=== PATIENT | male | born 1965 | race African-American/Black ===

== ENCOUNTER 2017-09-20 02:40 | Emergency (ER) | payer SELFPAY ==
[2017-09-20 02:48] VITALS: TEMP 98.9; BMI 27.6
[2017-09-20] MEDS ORDERED: POLYETHYLENE GLYCOL 3350 119 GM BTL PO ONE (03:12)
--- NOTE | 2017-09-20 03:12 | PDOC ---
History of Present Illness - General Chief Complaint: Constipation Stated Complaint: UNABLE TO MOVE BOWEL X 1 WEEK History Source: Patient Exam Limitations: No Limitations - History of Present Illness Initial Comments: 09/20/17 04:51 Pt states that he has a hx of chronic constipation; today however he has beeen constipated x 1 week despite citroma and mineral oil enema. He is on HCTZ and states that he doesn't drink enough water. States that his abd is not painful, but it is noticeably more distended than usual. Pt has a hx of CVA in the past. Pt has no residual weaknesses. Pt had a PMD, but PMD a year ago; pt has not seen an MD in two years. He is worried about the left arm numbness/tingly sensation. Timing/Duration: 1 week Severity: moderate Past History - Past Medical History Allergies/Adverse Reactions: Allergies Allergy/AdvReac Type Severity Reaction Status Date / Time cat dander Allergy Verified 09/20/17 02:46 dog dander Allergy Verified 09/20/17 02:46 shellfish derived Allergy Verified 09/20/17 02:46 Home Medications: Ambulatory Orders Amlodipine Besylate 10 mg PO DAILY 01/12/16 Carvedilol [Coreg] 6.25 mg PO BID 01/12/16 Valsartan/Hydrochlorothiazide [Valsartan-Hctz 160-25 mg Tab] 1 each PO DAILY HTN: Yes Hypercholesterolemia: Yes - Suicide/Smoking/Psychosocial Hx Smoking History: Never smoked Have you smoked in the past 12 months: No Hx Alcohol Use: No Drug/Substance Use Hx: No Substance Use Type: None Review of Systems - Review of Systems Constitutional: No: Symptoms Reported, See HPI, Chills, Diaphoresis, Fever, Loss of Appetite, Malaise, Night Sweats, Weakness, Weight Stable, Unintentional Wgt. Loss, Unexplained wgt Loss, Other HEENTM: No: Symptoms Reported, See HPI, Eye Pain, Blurred Vision, Tearing, Recent change in vision, Double Vision, Cataracts, Ear Pain, Ocular Prothesis, Ear Discharge, Nose Pain, Nose Congestion, Tinnitus, Nose Bleeding, Hearing Loss , Throat Pain, Throat Swelling, Mouth Pain, Dental Problems, Difficulty Swallowing, Mouth Swelling, Other Respiratory: No: Symptoms reported, See HPI, Cough, Orthopnea, Shortness of Breath, SOB with Exertion, SOB at Rest, Stridor, Wheezing, Productive cough, Hemoptysis, Other Cardiac (ROS): No: Symptoms Reported, See HPI, Chest Pain, Edema, Irregular Heart Rate, Lightheadedness, Palpitations, Syncope, Chest Tightness, Other ABD/GI: Yes: Constipated, Other (distended abdomen). No: Symptoms Reported, See HPI, Abdominal Distended, Abd. Pain w/ defecation, Blood Streaked Bowels, Diarrhea, Difficulty Swallowing, Nausea, Poor Appetite, Poor Fluid Intake, Rectal Bleeding, Vomiting, Indigestion, Abdominal cramping, Tarry Stools : No: Symptoms Reported, See HPI, Burning, Dysuria, Discharge, Frequency, Flank Pain, Hematuria, Incontinence, Pain, Urgency, Testicular Mass, Testicular Swelling, Lesions, Testicular Pain, Other Musculoskeletal: No: Symptoms Reported, See HPI, Back Pain, Gout, Joint Pain, Joint Swelling, Muscle Pain, Muscle Weakness, Neck Pain, Joint Stiffness, Other Integumentary: No: Symptoms Reported, See HPI, Bruising, Change in Color, Change in Hair/Nails, Dryness, Erythema, Flushing, Lesions, Lumps, Pallor, Pruritus, Rash, Sweating, Other Neurological: No: Symptoms reported, See HPI, Headache, Numbness, Paresthesia, Pre-Existing Deficit, Seizure, Tingling, Tremors, Weakness, Unsteady Gait, Ataxia, Dizziness, Other *Physical Exam - Vital Signs Last Vital Signs Temp Pulse Resp BP Pulse Ox 98.9 F 98 H 18 158/108 99 09/20/17 02:42 09/20/17 02:42 09/20/17 02:42 09/20/17 02:42 09/20/17 02:42 - Physical Exam General Appearance: Yes: Nourished, Appropriately Dressed HEENT: positive: EOMI, CODY, Normal ENT Inspection, Normal Voice, Pharynx Normal Neck: positive: Trachea midline, Normal Thyroid Respiratory/Chest: positive: Lungs Clear, Normal Breath Sounds Cardiovascular: positive: Regular Rhythm, Regular Rate, S1, S2 Gastrointestinal/Abdominal: positive: Normal Bowel Sounds, Flat Musculoskeletal: positive: Normal Inspection Extremity: positive: Normal Capillary Refill Integumentary: positive: Normal Color, Dry, Warm Neurologic: positive: dog obedience instructor II-XII NML intact, Fully Oriented, Alert ED Treatment Course - LABORATORY CBC & Chemistry Diagram: 09/20/17 04:25 09/20/17 04:25 - RADIOLOGY Radiology Studies Ordered: 09/20/17 04:55 FUA: Pt has multiple air fluid levels; he needs a CT scan to r/o obstruction/ ileus. Medical Decision Making - Medical Decision Making 09/20/17 04:49 Pt comes with abdominal distension and constipation. States for 7 days he has not moved bowels. Today with mineral oil enema he was able to leak out some stool. He states that his belly keeps getting bigger. Even when he eats, belly gets bigger. Pt also has left arm tingling x few days. He has a hx of CVA and HTN. He has no other complaints. Pt is afebrile and no N/V/D 09/20/17 07:01 Pt's flat and upright of his abd shows multiple air fluid levels. Pt was able to move his bowels however his abd is still distended. Pt will be sent for a CT abd pelvis at 7:30am. 09/20/17 07:09 Pt will be signed out to AM attending. *DC/Admit/Observation/Transfer Diagnosis at time of Disposition: Ileus - Discharge Dispostion Disposition: HOME Condition at time of disposition: Stable - Referrals Referrals: Nii Enamorado MD [Staff Physician] - Doron Regan MD [Staff Physician] - - Patient Instructions Printed Discharge Instructions: DI for Ileus Additional Instructions: Please call Dr. Regan's office tomorrow for a follow up primary care doctor appointment within 1-3 days. Also, call Dr. Cintron for a follow up appointment with cardiology within 1 week. As discussed in the emergency department, you are due for a colonoscopy to evaluate for cancer. Please arrange a colonoscopy with a primary care doctor in the next few months. Return to the emergency department if you have new, worsening or concerning symptoms.
[2017-09-20] MEDS ORDERED: LACTULOSE 20 GM/30 ML UDC (FOR ORAL USE ONLY) ONE (03:44)
[2017-09-20] MEDS ORDERED: SODIUM PHOSPHATE/NA BIPHOS 133 ML ENEMA PR ONE (03:52)
[2017-09-20] MEDS ORDERED: LACTULOSE 20 GM/30 ML UDC (FOR ORAL USE ONLY) PO ONE (03:52)
[2017-09-20 05:04] LABS: BASOPHIL 0.4 % (0-2.0); EOSINOPHIL 0.8 % (0-4.5); MCH 26.5 pg (25.7-33.7); MCHC 32.7 g/dl (32.0-35.9); MEAN PLT VOLUME 8.4 fl (7.5-11.1); NEUTROPHILS 77.2 % (42.8-82.8); PLATELET COUNT 263 K/MM3 (134-434); RDW 15.8 % (11.9-15.9); WHITE BLOOD COUNT 11.5 K/mm3 (4.0-10.0)
[2017-09-20 05:16] LABS: INR 1.17 (0.82-1.09); PROTHROMBIN TIME (PATIENT) 13.2 SEC (9.98-11.88)
[2017-09-20 05:44] LABS: ALBUMIN 4.3 g/dl (3.4-5.0); ANION GAP 9 (8-16); BILIRUBIN,TOTAL 0.5 mg/dL (0.2-1.0); CALCIUM 8.7 mg/dL (8.5-10.1); CO2 29 mmol/L (21-32); CREATININE 1.2 mg/dL (0.7-1.3); GLUCOSE,RANDOM 134 mg/dL (74-106); SGOT/AST 29 U/L (15-37); SGPT/ALT 80 U/L (12-78); TOT PROT 7.6 g/dl (6.4-8.2)
[2017-09-20 05:48] LABS: ALK PHOS 78 U/L (45-117); CPK 358 IU/L (39-308); TROPONIN I < 0.02 ng/ml (0.00-0.05)
--- NOTE | 2017-09-20 08:24 | PDOC ---
*Physical Exam - Vital Signs Last Vital Signs Temp Pulse Resp BP Pulse Ox 98.9 F 98 H 18 158/108 99 09/20/17 02:42 09/20/17 02:42 09/20/17 02:42 09/20/17 02:42 09/20/17 02:42 Heart Score/ECG Review - History History: Slightly suspicious - Electrocardiogram EKG: Non specific repolarization disturbance - Age Age: 45-65 - Risk Factors Risk Factors Heart Score: Yes Hx Hypertension Based on the list above the patient has:: 1-2 risk factors - Troponin Troponin: </= normal limit - Score Heart Score - Total: 3 ED Treatment Course - LABORATORY CBC & Chemistry Diagram: 09/20/17 04:25 09/20/17 04:25 - ADDITIONAL ORDERS Additional order review: Laboratory Results 09/20/17 09/20/17 04:25 04:25 PT with INR 13.20 H INR 1.17 H Sodium 140 Potassium 3.6 Chloride 102 Carbon Dioxide 29 Anion Gap 9 BUN 20 H Creatinine 1.2 Creat Clearance w eGFR > 60 Random Glucose 134 H Calcium 8.7 Total Bilirubin 0.5 AST 29 ALT 80 H Alkaline Phosphatase 78 Creatine Kinase 358 H Creatine Kinase Index 0.2 CK-MB (CK-2) < 1.0 Troponin I < 0.02 Total Protein 7.6 Albumin 4.3 09/20/17 04:25 RBC 5.34 MCV 81.0 MCHC 32.7 RDW 15.8 MPV 8.4 Neutrophils % 77.2 Lymphocytes % 12.5 Monocytes % 9.1 Eosinophils % 0.8 Basophils % 0.4 - Medications Given in the ED: ED Medications Discontinued Medications Generic Name Dose Route Start Last Admin Trade Name Freq PRN Reason Stop Dose Admin Lactulose 20 gm 09/20/17 03:52 09/20/17 04:04 Cephulac (Oral Use) PO 09/20/17 03:53 20 gm ONCE ONE Administration Polyethylene Glycol 17 gm 09/20/17 03:12 09/20/17 04:33 Miralax (For Daily Use) - PO 09/20/17 03:13 Not Given ONCE ONE Sodium Phosphate 133 ml 09/20/17 03:52 09/20/17 04:33 Fleet Adult Rectal Enema - VT 09/20/17 03:53 133 ml ONCE ONE Administration Medical Decision Making - Medical Decision Making 09/20/17 08:36 Patient signed out to me by overnight attending pending CT scan of the abdomen/ pelvis as well as repeat troponin. In summary, patient presented to the emergency department complaining of abdominal distention and had an abdominal x- ray that showed air-fluid levels. While awaiting CT scan the patient received multiple medications for constipation and had multiple bowel movements some liquid, and also some solid stool per the patient. In addition the patient was complaining of 3 days of left arm tingling and pain for which a troponin was sent that was negative and EKG was performed which showed multiple T-wave inversions but no ST changes. On my evaluation, this morning the patient reports he feels much better, and that his abdominal distention has improved since he had multiple bowel movements. Repeat abd exam with mild distention, but no tenderness, rebound or guardin. In addition, the patient reports no left arm tingling or pain and denies any chest pain or shortness of breath. The patient's heart score is 3. CT scan was completed which reveals an ileus but no obstruction and possible mesenteric adenitis. Results were discussed with patient. Currently the patient will PO challenge while we await his repeat troponin. In addition, the patient was noted to be hypertensive to 150/110 on repeat vitals this morning. He reports he did not take any of his home dose medications this morning including carvedilol, amlodipine, valsartan, and hydrochlorothiazide. I ordered those medications for the patient and will repeat his blood pressure. 09/20/17 09:27 Repeat blood pressure status post home dose of blood pressure medication is 140/ 91. Repeat troponin is negative. Rpt EKG stable. Patient ate breakfast and currently reports feeling much better than when he came in. He requests discharge. I discussed the physical exam findings, ancillary test results and final diagnoses with the patient. I answered all of the patient's questions. The patient was satisfied with the care received and felt comfortable with the discharge plan and treatment plan. The patient will call their primary care physician within 24 hours to arrange follow-up and will return to the Emergency Department with any new, persistent or worsening symptoms. *DC/Admit/Observation/Transfer Diagnosis at time of Disposition: Ileus - Discharge Dispostion Disposition: HOME Condition at time of disposition: Stable Admit: No - Referrals Referrals: Nii Enamorado MD [Staff Physician] - Outon,Doron, MD [Staff Physician] - - Patient Instructions Printed Discharge Instructions: DI for Ileus Additional Instructions: Please call Dr. Regan's office tomorrow for a follow up primary care doctor appointment within 1-3 days. Also, call Dr. Enamorado'quinn for a follow up appointment with cardiology within 1 week. As discussed in the emergency department, you are due for a colonoscopy to evaluate for cancer. Please arrange a colonoscopy with a primary care doctor in the next few months. Return to the emergency department if you have new, worsening or concerning symptoms. - Transfer to Acute Care Facility Transfer comment: 09/20/17 09:29 I, Dr. Shiva Mcmillan MD, attest that this document has been prepared under my direction and personally reviewed by me in its entirety. I further attest, that it accurately reflects all work, treatment, procedures and medical decision -making performed by me.
[2017-09-20 08:27] VITALS: PULSE 81
[2017-09-20] MEDS ORDERED: HYDROCHLOROTHIAZIDE 25 MG TABLET (FP) PO ONE (08:34)
[2017-09-20] MEDS ORDERED: CARVEDILOL 6.25 MG TABLET (FP) PO ONE (08:34)
[2017-09-20] MEDS ORDERED: VALSARTAN 160 MG TABLET (UD) PO ONE (08:34)
[2017-09-20] MEDS ORDERED: amLODIPine BESYLATE 10 MG TABLET (FP) PO ONE (08:34)
[2017-09-20] MEDS ORDERED: HYDROCHLOROTHIAZIDE 25 MG TABLET (FP) ONE (08:39)
[2017-09-20] MEDS ORDERED: amLODIPine BESYLATE 5 MG TABLET (FP) ONE (08:39)
[2017-09-20 09:27] VITALS: BP 144/91
--- NOTE | 2017-09-22 18:27 | EKG ---
Test Reason : Blood Pressure : / mmHG Vent. Rate : 094 BPM Atrial Rate : 094 BPM P-R Int : 186 ms QRS Dur : 088 ms QT Int : 350 ms P-R-T Axes : 038 030 -42 degrees QTc Int : 437 ms POOR DATA QUALITY, INTERPRETATION MAY BE ADVERSELY AFFECTED NORMAL SINUS RHYTHM T WAVE ABNORMALITY, CONSIDER INFEROLATERAL ISCHEMIA ABNORMAL ECG NO PREVIOUS ECGS AVAILABLE REPEAT EKG IF CLINICALLY INDICATED Confirmed by KIA OH MD ([id number]) on 09/22/2017 6:26:56 PM Referred By: MD DOSHI Confirmed By:KIA OH MD
== END 2017-09-20 09:43 | disposition home or self-care (01) ==
LOC: FER 02:40
DX: K56.7 Ileus, unspecified (principal); Z86.73 Personal history of transient ischemic attack (TIA), and cerebral infarction without residual deficits
CPT/HCPCS: 36415; 74020-TC; 74176-TC; 80053; 82550; 82553; 84484; 85025; 85610; 93005; 99283-25

== ENCOUNTER 2017-12-31 13:49 | Emergency (ER) | payer OTHER ==
--- NOTE | 2017-12-31 13:53 | PDOC ---
History of Present Illness <Sil Heard - Last Filed: 12/31/17 14:39> - General History Source: Patient Exam Limitations: No Limitations - History of Present Illness Initial Comments: 12/31/17 14:15 52 y/o male with let arm tingling on/off for several weeks, gets this way when blood pressure is elevated. having a hard time controlling blood pressure. Hx of stroke in 2015. Had some left leg tingling as well. No weakness, chest pain or back pain. Denies SOB, fall or trauma. takes a baby ASA daily. Did not take one today. Pt has not followed up with or was never seen by a Neurologist. <Isaías Knapp - Last Filed: 12/31/17 15:35> - General Chief Complaint: CVA/TIA Stated Complaint: TINGLING,NUMBNESS TO LEFT ARM Time Seen by Provider: 12/31/17 13:52 Past History <Sil Heard - Last Filed: 12/31/17 14:39> - Past Medical History HTN: Yes Hypercholesterolemia: Yes - Suicide/Smoking/Psychosocial Hx Smoking History: Never smoked Have you smoked in the past 12 months: No Hx Alcohol Use: No Drug/Substance Use Hx: No Substance Use Type: None <Isaías Knapp - Last Filed: 12/31/17 15:35> - Past Medical History Allergies/Adverse Reactions: Allergies Allergy/AdvReac Type Severity Reaction Status Date / Time cat dander Allergy Verified 12/31/17 13:50 dog dander Allergy Verified 12/31/17 13:50 shellfish derived Allergy Verified 12/31/17 13:50 Home Medications: Ambulatory Orders Amlodipine Besylate 10 mg PO DAILY 01/12/16 Carvedilol [Coreg] 6.25 mg PO BID 01/12/16 Valsartan/Hydrochlorothiazide [Valsartan-Hctz 160-25 mg Tab] 1 each PO DAILY Aspirin 81 mg PO DAILY 12/31/17 Review of Systems - Review of Systems Able to Perform ROS?: Yes Is the patient limited Congolese proficient: No Constitutional: No: Chills, Fever HEENTM: No: Eye Pain, Blurred Vision Respiratory: No: Cough, Shortness of Breath Cardiac (ROS): No: Chest Pain ABD/GI: No: Diarrhea, Nausea, Vomiting : No: Dysuria Integumentary: No: Bruising Neurological: Yes: Numbness, Paresthesia. No: Headache, Dizziness All Other Systems: Reviewed and Negative <AriaIsaías - Last Filed: 12/31/17 15:35> *Physical Exam - Vital Signs Last Vital Signs Temp Pulse Resp BP Pulse Ox 98 F 71 18 168/106 98 12/31/17 13:49 12/31/17 13:49 12/31/17 13:49 12/31/17 13:49 12/31/17 13:49 <Heard,Giomilsy - Last Filed: 12/31/17 14:39> - Physical Exam General Appearance: Yes: Nourished, Appropriately Dressed. No: Apparent Distress HEENT: positive: EOMI, CODY, Normal ENT Inspection, Normal Voice, Symmetrical, Pharynx Normal Neck: positive: Trachea midline, Normal Thyroid, Supple. negative: Tender, Rigid Respiratory/Chest: positive: Lungs Clear, Normal Breath Sounds. negative: Chest Tender, Respiratory Distress Cardiovascular: positive: Regular Rhythm, Regular Rate, S1, S2. negative: Edema , JVD, Murmur Vascular Pulses: Femoral (R): 4+, Femoral (L): 4+, Carotid (R): 4+, Carotid (L) : 4+, Dorsalis-Pedis (R): 4+, Doralis-Pedis (L): 4+ Gastrointestinal/Abdominal: positive: Normal Bowel Sounds, Flat, Soft. negative : Tender, Organomegaly, Pulsatile Mass Lymphatic: negative: Adenopathy, Tenderness, Other Musculoskeletal: positive: Normal Inspection. negative: CVA Tenderness Extremity: positive: Normal Capillary Refill, Normal Inspection, Normal Range of Motion, Tender Integumentary: positive: Normal Color, Dry, Warm Neurologic: positive: senior health consultant II-XII NML intact, Fully Oriented, Alert, Normal Mood/ Affect, Normal Response, Motor Strength 5/5, Other (strength 5+/5 b/l in UE and LE, no focal deficits noted) <AriaIsaías - Last Filed: 12/31/17 15:35> NIH Stroke Scale - Initial Evaluation Level of consciousness: Alert Ask patient the month and their age: Answers both correctly Ask patient to open & close eyes; make fist and let go: Obeys both correctly Best gaze (horizontal eye movement): Normal Visual field testing: No visual field loss Facial paresis (Show teeth/raise eyebrows/close eyes tight): Normal symmetrical movement Motor Function: Left Arm: Normal Motor Function: Right Arm: Normal (extends arm 90 (or 45) degrees for 10 seconds without drift Motor Function: Left Leg: Normal (extends leg 30 degrees for 5 seconds without drift) Motor Function: Right Leg: Normal (extends leg 30 degrees for 5 seconds without drift) Limb Ataxia: No ataxia Sensory(Use pinprick test arms,legs,trunk,face/side to side): Normal Best language (Describe picture, name items, read sentences): No Aphasia Dysarthria (read several words): Normal articulation Extinction and Inattention: No abnormality - Total Score NIH Stroke Scale Score: 0 <Isaías Knapp - Last Filed: 12/31/17 15:35> Heart Score/ECG Review - ECG Intrepretation Comment:: 12/31/17 14:31 Vent Rate: 76 bpm IMPRESSION: Normal sinus rhythm. Normal axis. No ST elevations or T wave inversions. Documentation prepared by Sil Heard, acting as medical communication specialist for Isaías Knapp MD. <Sil Heard - Last Filed: 12/31/17 14:39> Critical Care Time/MDM Note - Medical Decision Making Note: 12/31/17 14:39 EXAM: Head CT INTERPRETED BY: Dr. Self REVIEWED BY: Dr. Knapp IMPRESSION: Minimal volume loss without gross evidence of acute intracranial pathology. Correlate clinically to determine further evaluation and follow-up. <Sil Heard - Last Filed: 12/31/17 14:39> - Medical Decision Making Note: 12/31/17 15:32 Pt continues to do well. Spoke with Neurologist radio electronics technician Dr. yBers, recommends continue medications and will see in office Most likely radiculopathy or blood pressure related. Will needs MRI brain/neck as out patient If worsen return to ER. Patient is in agreement with plan. CT head negative BP is WNL now on discharge EKG NSR Labs normal 12/31/17 15:34 <Isaías Knapp - Last Filed: 12/31/17 15:35> Discharge Disposition <Sil Heard - Last Filed: 12/31/17 14:39> - Discharge Dispostion Admit: No <JosebebeIsaías - Last Filed: 12/31/17 15:35> - Diagnosis Arm paresthesia, left - Discharge Dispostion Disposition: HOME Condition at time of disposition: Fair - Referrals Referrals: Rafa Byers MD [Staff Physician] - - Patient Instructions Printed Discharge Instructions: DI for Numbness/tingling Additional Instructions: Continue current medications Follow up with Neurologist If worsens return to ER
[2017-12-31 13:54] VITALS: TEMP 98; BMI 28.2
[2017-12-31 14:41] LABS: ALBUMIN 4.2 g/dl (3.5-5.0); ALK PHOS 67 U/L (32-92); ANION GAP 7 (8-16); BLOOD UREA NITROGEN 14 mg/dl (7-18); CALCIUM 8.7 mg/dl (8.4-10.2); CHLORIDE 101 mmol/L (98-107); CO2 26 mmol/L (22-28); CREATININE 1.4 mg/dl (0.6-1.3); GLUCOSE,RANDOM 98 mg/dl (74-106); POTASSIUM 3.3 mmol/L (3.5-5.1); SGOT/AST 21 U/L (10-42); SGPT/ALT 17 U/L (10-40); SODIUM 134 mmol/L (136-145)
[2017-12-31 14:43] LABS: ACTIVATED PTT 28.5 SECONDS (24.0-38.9)
[2017-12-31 14:47] LABS: BASO % 0.6 % (0-2.0); EOS % 4.5 % (0-4.5); HEMATOCRIT 41.7 % (35.4-49); HEMOGLOBIN 13.8 GM/dl (11.7-16.9); LYMPH % 34.6 % (8-40); MCH 26.6 pg (25.7-33.7); MCHC 33.2 g/dl (32.0-35.9); MEAN CELL VOLUME 80.2 fl (80-96); MEAN PLT VOLUME 8.5 fl (7.5-11.1); NEUT % 50.3 % (42.8-82.8); PLATELET COUNT 295 K/MM3 (134-434); RDW 14.3 % (11.9-15.9); WHITE BLOOD COUNT 6.7 K/mm3 (4.0-10.8)
[2017-12-31 14:48] LABS: INR 1.23 (0.82-1.09); PROTHROMBIN TIME (PATIENT) 13.7 SEC (10.2-13.0)
[2017-12-31 14:54] LABS: BILIRUBIN,TOTAL 0.5 mg/dl (0.2-1.0)
[2017-12-31 15:09] VITALS: BP 129/86; PULSE 75
[2017-12-31] MEDS ORDERED: ASPIRIN 81 MG CHEWABLE TABLETS ONE (15:26)
[2017-12-31] MEDS ORDERED: ASPIRIN 81 MG CHEWABLE TABLETS PO ONE (15:29)
--- NOTE | 2018-01-06 13:09 | EKG ---
Test Reason : Blood Pressure : / mmHG Vent. Rate : 076 BPM Atrial Rate : 076 BPM P-R Int : 208 ms QRS Dur : 096 ms QT Int : 392 ms P-R-T Axes : 032 037 020 degrees QTc Int : 441 ms NORMAL SINUS RHYTHM WITH 1ST DEGREE A-V BLOCK NONSPECIFIC T WAVE ABNORMALITY WHEN COMPARED WITH ECG OF 20-SEP-2017 04:23, First degree AV block is now present NONSPECIFIC T WAVE ABNORMALITY are no longer present in V3-6 Confirmed by AMADO HECK MD ([id number]) on 01/06/2018 1:09:13 PM Referred By: JARAD ROBB Confirmed By:AMADO HECK MD
== END 2017-12-31 15:41 | disposition home or self-care (01) ==
LOC: FER 13:49
DX: R20.2 Paresthesia of skin (principal); I10 Essential (primary) hypertension; E78.00 Pure hypercholesterolemia, unspecified
CPT/HCPCS: 36415; 70450-TC; 80053; 84484; 85025; 85610; 85730; 93005; 99285-25

== ENCOUNTER 2022-12-27 06:19 | Emergency (ER) | payer OTHER ==
[2022-12-27] MEDS ORDERED: IBUPROFEN 600 MG TABLET (FP) PO ONE (06:33)
[2022-12-27 06:47] VITALS: PULSE 70; RESP 18; TEMP 99; BMI 23.1
[2022-12-27] MEDS ORDERED: ACETAMINOPHEN 325 MG TABLET (FP) PO ONE (07:09)
[2022-12-27] MEDS ORDERED: ACETAMINOPHEN 325 MG TABLET (FP) ONE (07:28)
[2022-12-27] MEDS ORDERED: LIDOCAINE HCL 1%, 10 MG/ML (20ML VIAL) ONE (08:32)
[2022-12-27 09:57] VITALS: BP 140/88
== END 2022-12-27 10:02 | disposition home or self-care (01) ==
LOC: FER 06:19
DX: S92.911A Unspecified fracture of right toe(s), initial encounter for closed fracture (principal); W22.8XXA Striking against or struck by other objects, initial encounter; Y93.02 Activity, running
CPT/HCPCS: 73660-TC-FY; 99283-25